=== PATIENT | female | born 1965 | race Caucasian/White ===

== ENCOUNTER → 2020-11-04 | Outpatient (CLI) | payer BC, OTHER ==
[~2020-11-04] MED LIST: ADVIL100 M2 PO; ANUSOL-HC25 MG RECTAL; ASPIR 8181 MG PO; BENADRYL25 MG PO; NAPRELAN750 MG PO; PHENERGAN 25 MG25 M1 PO; PROTONIX40 M1 PO; TRAMADOL 50 MG50 MG PO; TYLENOL325 MG PO; ZANTAC 150MG T150 M1 PO
== END | disposition home or self-care (01) ==
LOC: GI 08:27
PROVIDERS: ATTEND Internal Medicine Gastroenterology
DX: R13.10 Dysphagia, unspecified (principal); K21.9 Gastro-esophageal reflux disease without esophagitis; K44.9 Diaphragmatic hernia without obstruction or gangrene; Z98.890 Other specified postprocedural states; Z79.899 Other long term (current) drug therapy